=== PATIENT | female | born 1980 | race Caucasian/White ===

== ENCOUNTER 2017-09-21 12:50 | Outpatient (CLI) | payer MEDICAID ==
[2017-09-21 19:43] LABS: BASOPHILS # (AUTO) 0.1 10^3/uL (0.0-0.1); BASOPHILS % (AUTO) 0.9 %; EOSINOPHILS # (AUTO) 0.1 10^3/uL (0.0-0.7); EOSINOPHILS % (AUTO) 1.5 %; HCT - HEMATOCRIT 40.7 % (37.0-47.0); HGB - HEMOGLOBIN 13.6 g/dL (12.0-16.0); LYMPHOCYTES # (AUTO) 2.1 10^3/uL (1.5-3.5); LYMPHOCYTES % (AUTO) 33.1 %; MEAN CORPUSCULAR HEMOGLOBIN 31.7 pg (27.0-31.0); MEAN CORPUSCULAR HGB CONC 33.3 g/dL (32.0-36.0); MEAN CORPUSCULAR VOLUME 95.2 fL (81.0-99.0); MEAN PLATELET VOLUME 9.6 fL (7.9-10.8); MONOCYTES # (AUTO) 0.4 10^3/uL (0.0-1.0); MONOCYTES % (AUTO) 6.8 %; NEUTROPHILS # (AUTO) 3.7 10^3/uL (1.5-6.6); NEUTROPHILS % (AUTO) 57.7 %; RED BLOOD COUNT 4.28 10^6/uL (4.20-5.40); RED CELL DISTRIBUTION WIDTH 13.9 % (12.0-15.0); UNCORRECTED WHITE BLOOD COUNT 6.4 x10^3/uL; WHITE BLOOD COUNT 6.4 x10^3/uL (4.8-10.8)
== END 2017-09-21 12:51 | disposition home or self-care (01) ==
LOC: LAB.F 12:50
PROVIDERS: ATTEND Nurse Practitioner Family
DX: R53.83 Other fatigue (principal)
CPT/HCPCS: 36415; 84443; 85025

== ENCOUNTER 2018-12-18 12:26 | Outpatient (CLI) | payer MEDICAID ==
--- NOTE | 2018-12-18 18:39 | MRI Report ---
Reason: DERANG OF UNSP LAT MENS DUE TO OLD TEAR/INJ, RIGH Procedure Date: 12/18/2018 Accession Number: [id number] / [id number] Procedure: MRI - Knee RT W/O CPT Code: FULL RESULT: EXAM: RIGHT KNEE MRI WITHOUT CONTRAST EXAM DATE: 12/18/2018 12:40 PM. CLINICAL HISTORY: Knee pain after lifting injury. History of prior knee surgery. COMPARISON: KNEE 3 VIEW RT 11/08/2018 9:31 AM. TECHNIQUE: Multiplanar, multisequence T1-weighted and fluid-sensitive sequences of the knee without contrast. Other: None. FINDINGS: Ligaments: ACL reconstruction has been performed. The ACL graft is contiguous and without laxity and there are no signs of graft tear. The posterior cruciate ligament is intact. The medial and lateral collateral ligaments are intact. Patellofemoral compartment: Diffuse thinning of the retropatellar cartilage of the lower half of the patella, most evident centrally and laterally. There is also full-thickness chondromalacia of the superior aspect of the femoral trochlea, most evident centrally and laterally. Small patellofemoral osteophytes indicate mild osteoarthritis. Patellofemoral alignment is anatomic. Postsurgical changes in the patellar tendon consistent with graft harvesting for the ACL reconstruction. The patellar tendon is otherwise normal. The distal quadriceps tendon is normal. The medial and lateral patellofemoral retinacula are normal. Medial compartment: The medial meniscus is intact. Medial compartment cartilage is preserved. Tiny medial compartment osteophytes indicate osteoarthritis. Lateral compartment: The lateral meniscus is intact. There is partial thickness chondromalacia of the lateral femoral condyle and lateral tibial plateau posteriorly. Small to moderate sized lateral compartment osteophytes indicate osteoarthritis. Soft tissues: There is a small knee effusion with synovitis. No popliteal cyst. IMPRESSION: 1. Intact ACL reconstruction. 2. 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 3. Mild lateral compartment chondromalacia and osteoarthritis. No lateral meniscal tear. 4. Mild medial compartment osteoarthritis without chondromalacia. Intact medial meniscus. [facility] MUSCULOSKELETAL RADIOLOGY SECTION
== END 2018-12-18 12:27 | disposition home or self-care (01) ==
LOC: DI 12:26
PROVIDERS: ATTEND Orthopaedic Surgery
DX: M94.261 Chondromalacia, right knee (principal); M17.11 Unilateral primary osteoarthritis, right knee

== ENCOUNTER 2019-10-11 07:00 | Outpatient (CLI) | payer MEDICAID | END 2019-10-11 23:59 | disposition home or self-care (01) | LOC: LAB.R 07:00 | PROVIDERS: ATTEND Family Medicine | DX: R30.0 Dysuria (principal) | CPT/HCPCS: 87086 ==

== ENCOUNTER 2019-10-11 14:52 | Outpatient (CLI) | payer MEDICAID ==
[2019-10-11 17:14] LABS: BASOPHILS % (AUTO) 0.4 %; EOSINOPHILS # (AUTO) 0.1 10^3/uL (0.0-0.7); EOSINOPHILS % (AUTO) 1.2 %; HGB - HEMOGLOBIN 12.4 g/dL (12.0-16.0); LYMPHOCYTES # (AUTO) 2.2 10^3/uL (1.5-3.5); LYMPHOCYTES % (AUTO) 28.6 %; MEAN CORPUSCULAR HEMOGLOBIN 31.1 pg (27.0-31.0); MEAN CORPUSCULAR HGB CONC 32.5 g/dL (32.0-36.0); MEAN CORPUSCULAR VOLUME 95.7 fL (81.0-99.0); MEAN PLATELET VOLUME 11.4 fL (7.9-10.8); MONOCYTES # (AUTO) 0.5 10^3/uL (0.0-1.0); MONOCYTES % (AUTO) 6.4 %; NEUTROPHILS # (AUTO) 4.9 10^3/uL (1.5-6.6); NEUTROPHILS % (AUTO) 63.1 %; PLT - PLATELET COUNT 264 10^3/uL (130-450); RED BLOOD COUNT 3.99 10^6/uL (4.20-5.40); RED CELL DISTRIBUTION WIDTH 12.4 % (12.0-15.0); WHITE BLOOD COUNT 7.7 x10^3/uL (4.8-10.8)
== END 2019-10-11 14:53 | disposition home or self-care (01) ==
LOC: LAB.S 14:52
PROVIDERS: ATTEND Family Medicine
DX: R10.2 Pelvic and perineal pain (principal); R30.0 Dysuria
CPT/HCPCS: 36415; 81001; 85025; 85651; 86140; 87086

== ENCOUNTER 2019-11-15 10:37 | Outpatient (CLI) | payer MEDICAID ==
--- NOTE | 2019-11-16 04:34 | Ultrasound Report ---
Reason: PELVIC PAIN Procedure Date: 11/15/2019 Accession Number: [id number] / [id number] Procedure: US - Pelvic w/Transvaginal CPT Code: Final Report FULL RESULT: EXAM: PELVIC ULTRASOUND EXAM DATE: 11/15/2019 10:49 AM. CLINICAL HISTORY: PELVIC PAIN. COMPARISON: None. TECHNIQUE: Realtime transabdominal pelvic scan performed to identify the uterus and adnexa and as an overview of other pelvic structures, followed by transvaginal scan to provide greater detail of the uterus and adnexa, with static image documentation. FINDINGS: Uterus: 8.6 x 4.5 x 5.5 cm, volume 111 cc. Anteverted position. Normal overall size and echotexture. Masses: Subcentimeter posterior intramural uterine fibroid measuring 6 x 5 x 7 mm. Endometrium: 10 mm. Normal. Cervix: Nabothian cysts. Echogenic focus in posterior cervix measuring 4 x 3 x 6 mm. Right Ovary: 1.7 x 2.3 x 3.3 cm, volume 7 cc. Hemorrhagic involuting cyst/follicle measuring 1.3 x 1.2 x 1.4 cm. Normal blood flow. Left Ovary: 2.3 x 2.2 x 2.5 cm, volume 6.4 cc. Normal echotexture and blood flow. Free Fluid: None. Other: None. IMPRESSION: 1. No evidence of ovarian torsion. 2. Involuting hemorrhagic cyst/follicle in right ovary measuring 1.4 cm. 3. Echogenic 6 mm focus in cervix, nonspecific. This could represent calcification although other etiologies are not excluded. Consider follow-up pelvic ultrasound in 6-10 weeks to reassess. 4. Subcentimeter uterine fibroid. [facility]
== END 2019-11-15 10:38 | disposition home or self-care (01) ==
LOC: DI 10:37
PROVIDERS: ATTEND Family Medicine
DX: N83.201 Unspecified ovarian cyst, right side (principal); N88.9 Noninflammatory disorder of cervix uteri, unspecified; D25.1 Intramural leiomyoma of uterus
CPT/HCPCS: 76830; 76856

== ENCOUNTER 2019-12-27 11:12 | Outpatient (CLI) | payer MEDICAID ==
--- NOTE | 2019-12-29 02:53 | Ultrasound Report ---
Reason: ABNORMAL CERVIX FINDING Procedure Date: 12/27/2019 Accession Number: [id number] / [id number] Procedure: US - Pelvic w/Transvaginal CPT Code: Final Report FULL RESULT: EXAM: PELVIC ULTRASOUND EXAM DATE: 12/27/2019 12:25 PM. CLINICAL HISTORY: Abnormal cervix finding. COMPARISON: PELVIC W/TRANSVAGINAL 11/15/2019 10:49 AM. TECHNIQUE: Realtime transabdominal pelvic scan performed to identify the uterus and adnexa and as an overview of other pelvic structures, followed by transvaginal scan to provide greater detail of the uterus and adnexa, with static image documentation. FINDINGS: LMP: 12/08/2019 Uterus: Uterus is normal in position and normal in configuration. Uterus measures 8.5 x 4.3 x 4.9 cm, 95 mL. There are 2 tiny posterior uterine leiomyoma measuring up to 9 mm. Endometrium: Endometrium measures 11.1 mm. No suspicious thickening or vascularity. Cervix: Small lobulated echogenic focus within the cervix is again noted, measuring 6.5 x 3.9 x 6.4 mm. Multiple nabothian cysts. Right Ovary: Normal in appearance measuring 3.1 x 2.4 x 1.8 cm, 7.4 mL. Normal blood flow. Left Ovary: Normal in appearance measuring 2.2 x 1.9 x 1.7 cm, 5.2 mL. Normal blood flow. Fluid: No signficant free fluid. Other: No other significant findings. IMPRESSION: Stable small lobular echogenic focus within the cervix measuring 6.5 x 3.9 x 6.4 mm. This probably represents a tiny dystrophic cervical calcification. However, correlation with recent Pap smear findings recommended.
== END 2019-12-27 11:13 | disposition home or self-care (01) ==
LOC: DI 11:12
PROVIDERS: ATTEND Nurse Practitioner Obstetrics & Gynecology
DX: N88.8 Other specified noninflammatory disorders of cervix uteri (principal)
CPT/HCPCS: 76830; 76856

== ENCOUNTER 2020-02-24 11:36 | Emergency (ER) | payer MEDICAID ==
--- NOTE | 2020-02-24 13:35 | ED Physician Documentation ---
History of Present Illness - Stated complaint Stated Complaint: RECTAL PX - Chief complaint Chief Complaint: General - History obtained from History obtained from: Patient (This is a previously healthy 40-year-old woman who for the last 3 weeks has had rectal pain, increasingly severe over the last 3 or 4 days. She does note a lump there. She feels like she has had hemorrhoids before but no formal diagnosis. She has been using Preparation H without relief. Of note she chronically has a feeling of the need to have a large bowel movement and disimpact herself but when she actually does the stool is soft. Chronic mild hematochezia without work-up.) Review of Systems Constitutional: denies: Fever, Chills, Weight Loss, Sweats GI: denies: Abdominal Pain, Nausea, Vomiting, Hematemesis : denies: Dysuria, Frequency PD PAST MEDICAL HISTORY - Past Medical History Cardiovascular: None Respiratory: None GI: None : None HEENT: None Psych: None Musculoskeletal: Other Derm: None - Past Surgical History Ortho: Arthroscopic surgery, Other HEENT: Tonsil/Adenoidectomy - Present Medications Home Medications: Ambulatory Orders Medication Instructions Recorded Confirmed Lidocaine [Anecream] 5 ml TP Q4H PRN #3 cream..g. 02/24/20 - Allergies Allergies/Adverse Reactions: Allergies Allergy/AdvReac Type Severity Reaction Status Date / Time Tetracyclines Allergy Severe Hives/SOB Verified 02/24/20 11:46 PD ED PE NORMAL - Vitals Vital signs reviewed: Yes - General General: Alert and oriented X 3, No acute distress - Abdomen Abdomen: Normal bowel sounds, Soft, Non tender - Female Female : Other (Rectal exam done with nurse Salma at the bedside and chaperoning. She has a nonthrombosed hemorrhoid at 12:00 which is tender. No other perirectal masses or obvious fissure.) - Neuro Neuro: Alert and oriented X 3, Normal speech Results - Vitals Vitals: Vital Signs - 24 hr 02/24/20 11:46 Temperature 36.6 C Heart Rate 56 L Respiratory 18 Rate Blood Pressure 108/72 O2 Saturation 100 Oxygen O2 Source Room air Departure - Departure Disposition: 01 Home, Self Care Clinical Impression: Hemorrhoid Qualifiers: Hemorrhoid type: unspecified Qualified Code(s): K64.9 - Unspecified hemorrhoids Condition: Good Record reviewed to determine appropriate education?: Yes Instructions: ED Hemorrhoids Prescriptions: Lidocaine [Anecream] 5 ml TP Q4H PRN #3 cream..g. PRN Reason: Rectal Pain Comments: As discussed you have some symptoms that are concerning in the long-term and I would suggest you follow-up with your primary care physician for consideration for referral for colonoscopy. Return for new or worsening symptoms.
[2020-02-24 13:50] VITALS: BP 106/86
== END 2020-02-24 13:48 | disposition home or self-care (01) ==
LOC: ED 11:36
DX: K64.9 Unspecified hemorrhoids (principal)
CPT/HCPCS: 99282; 99283

== ENCOUNTER 2021-02-10 13:58 | Outpatient (CLI) | payer OTHER, MEDICAID ==
--- NOTE | 2021-02-10 17:00 | XRAY Report ---
PROCEDURE: Lumbar Spine Complete INDICATIONS: DDD LUMBAR SPINE TECHNIQUE: 5 views of the lumbar spine were acquired. COMPARISON: None. FINDINGS: Bones: 5 vbe-lsy-mimvjyn vertebrae are present. There is mild to moderate levoscoliosis of lumbar s pine centered at L3 level. Degenerative endplate changes are noted at L4-5 and L5-S1 levels. No vert ebral body compression fractures. No suspicious bony lesions. Oblique views shows no gross pars defects. No significant bony foraminal stenosis. Soft tissues: Overlying bowel gas pattern is normal. No suspicious soft tissue calcifications. IMPRESSION: Degenerative disc disease in lower lumbar spine most prominent at L5-S1 level. No acute compression fracture. Mild to moderate scoliosis of lumbar spine centered at L3 level. No gross pars defect. Reviewed by: Aric Patel MD on 02/10/2021 4:59 PM PDT Approved by: Aric Patel MD on 02/10/2021 4:59 PM PDT Station ID: [id number]
== END 2021-02-10 13:59 | disposition home or self-care (01) ==
LOC: DI.S 13:58
PROVIDERS: ATTEND Physician Assistant
DX: M51.36 Other intervertebral disc degeneration, lumbar region (principal); M51.37 Other intervertebral disc degeneration, lumbosacral region; M41.9 Scoliosis, unspecified

== ENCOUNTER 2023-04-04 06:50 | Emergency (ER) | payer OTHER, MEDICAID ==
[2023-04-04 07:09] VITALS: BP 115/80
--- NOTE | 2023-04-04 07:45 | ED Physician Documentation ---
PD HPI HEENT - Stated complaint Stated Complaint: L JAW/BODY PX/SOA - Chief complaint Chief Complaint: General - History obtained from History obtained from: Patient - History of Present Illness Timing - onset: How many days ago (4) Timing - duration: Days (4) Timing - details: Gradual onset, Still present Location: Tooth Improves: Medication Worsens: Everything Associated symptoms: Other (body aches severe pain in jaw). No: Fever, Congestion, Rhinorrhea, Trismus, Unable to swallow, Swollen nodes, Facial swelling, Headache, Cough Similar symptoms before: Diagnosis (dental infection) Recently seen: Not recently seen - Additional information Additional information: 43-year-old Paula Baez has developed pain in her left lower jaw over the past 3 days that has been unrelenting. She is not getting a break from the pain she has not been able to sleep and she is having generalized body aches as well. She has had this tooth worked on previously it has a crown that has come off. She has had pain intermittently to this area and now it is persistent and severe. Review of Systems Constitutional: reports: Myalgias, Fatigue. denies: Fever Eyes: denies: Decreased vision Ears: denies: Ear pain Nose: denies: Rhinorrhea / runny nose, Congestion Throat: reports: Dental pain / toothache Cardiac: denies: Chest pain / pressure, Palpitations Respiratory: denies: Dyspnea, Cough GI: reports: Nausea. 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 : Nocturia, Frequency HEENT: None Psych: None Musculoskeletal: Other Derm: None - Past Surgical History Past Surgical History: Yes Ortho: Arthroscopic surgery, Other HEENT: Tonsil/Adenoidectomy - Present Medications Home Medications: Ambulatory Orders Medication Instructions Recorded Confirmed Cholecalciferol (Vitamin D3) 125 mcg PO DAILY 06/29/20 04/04/23 [Vitamin D3] Amoxicillin 875 mg PO BID #20 tablet 04/04/23 HYDROcod/ACETAM 5/325 [Lakeland 5/325] 1 - 2 tablet PO Q6H PRN #14 tablet 04/04/23 - Allergies Allergies/Adverse Reactions: Allergies Allergy/AdvReac Type Severity Reaction Status Date / Time Tetracyclines Allergy Severe Hives/SOB Verified 04/04/23 06:58 - Social History Does the pt smoke?: No Smoking Status: Never smoker Does the pt drink ETOH?: No Does the pt have substance abuse?: No - Immunizations Immunizations are current?: Yes PD ED PE NORMAL - Vitals Vital signs reviewed: Yes (Tachycardic) - General General: Alert and oriented X 3, No acute distress, Well developed/nourished - HEENT HEENT: Atraumatic, PERRL, EOMI, Other (There is a left lower molar that has a smooth surface and no drainage. There is tenderness to the mesial aspect of the tooth in the mouth without mass palpable. There is no mass palpable to the gingiva on the buccal side.) - Neck Neck: Supple, no meningeal sign, No bony TTP - Respiratory Respiratory: No respiratory distress - Derm Derm: Normal color, Warm and dry, No rash - Extremities Extremities: No deformity, No edema - Neuro Neuro: Alert and oriented X 3, shop steward 2-12 intact, No motor deficit, No sensory deficit, Normal speech Eye Opening: Spontaneous Motor: Obeys Commands Verbal: Oriented GCS Score: 15 - Psych Psych: Normal mood, Normal affect Results - Vitals Vitals: Vital Signs - 24 hr 04/04/23 06:59 Temperature 37.7 C Heart Rate 105 H Respiratory 20 Rate Blood Pressure 115/80 O2 Saturation 100 Oxygen O2 Source Room air PD Medical Decision Making - ED course Complexity details: considered differential, d/w patient ED course: 43-year-old female with a dental abscess from what looks like a failed crown has generalized body aches as well. We will place patient on a course of amoxicillin and provide some temporary pain relief as well as referral to Dr. Barajas Departure - Departure Disposition: 01 Home, Self Care Clinical Impression: Dental abscess Condition: Stable Instructions: ED Abscess Dental Follow-Up: ASAD BARAJAS [Physician No Access] - Prescriptions: Amoxicillin 875 mg PO BID #20 tablet HYDROcod/ACETAM 5/325 [[place] 5/325] 1 - 2 tablet PO Q6H PRN #14 tablet PRN Reason: Pain Comments: Paula, it looks like you have a dental abscess in the lower molar on your left side. This will need to be addressed by the dentist and I have given you a number for a oral maxillofacial surgeon in [place] for follow-up. Treatment with antibiotic will help with the pain and reduce the effects of the infection. I have E scribed some amoxicillin to the [facility] in [place]. I have also E scribed some Lakeland for pain control. This is a narcotic pain medication and you cannot drive or operate machinery after you have used it, it will make you constipated and it is habit-forming, so we are only a able to provide a small amount of this pain medication.
[2023-04-04 08:13] LABS: B. PARAPERTUSSIS- RESP PCR PAN NOT DETECTED; B. PERTUSSIS- RESP PCR PANEL NOT DETECTED; C. PNEUMONIAE- RESP PCR PANEL NOT DETECTED; CORONAVIRUS 229E-RESP PCR NOT DETECTED; CORONAVIRUS HKU1-RESP PCR NOT DETECTED; CORONAVIRUS NL63-RESP PCR NOT DETECTED; CORONAVIRUS OC43-RESP PCR NOT DETECTED; HUMAN METAPNEUMOVIRUS NOT DETECTED; INFLUENZA A- RESP PCR PANEL NOT DETECTED; INFLUENZA B - RESP PCR PANEL NOT DETECTED; M. PNEUMONIAE- RESP PCR PANEL NOT DETECTED; PARAINFLUENZA VIRUS 1 NOT DETECTED; PARAINFLUENZA VIRUS 2 NOT DETECTED; PARAINFLUENZA VIRUS 3 NOT DETECTED; PARAINFLUENZA VIRUS 4 NOT DETECTED; RHINOVIRUS/ENTEROVIRUS NOT DETECTED; RSV- RESP PCR PANEL NOT DETECTED; SARS-CoV-2 -RESP PCR PANEL NOT DETECTED
== END 2023-04-04 08:10 | disposition home or self-care (01) ==
LOC: ED 06:50
DX: K04.7 Periapical abscess without sinus (principal)
CPT/HCPCS: 87633; 99283

== ENCOUNTER 2023-08-25 10:40 | Outpatient (CLI) | payer OTHER, MEDICAID ==
--- NOTE | 2023-08-28 12:24 | Mammography Report ---
BILATERAL DIGITAL DIAGNOSTIC MAMMOGRAM 3D/2D: 08/25/2023 CLINICAL: Baseline exam. Lump in right breast. No prior exams were available for comparison. Both breasts are heterogeneously dense, which may obscure small masses (category c / 51-75% glandular tissue). There is an irregular equal density focal asymmetry in the right breast at 11 o'clock middle depth. No other significant masses, calcifications, or other findings are seen in either breast. IMPRESSION: INCOMPLETE: NEEDS ADDITIONAL IMAGING EVALUATION The irregular equal density focal asymmetry in the right breast resembles fibroglandular tissue and i s indeterminate. An ultrasound is recommended for further evaluation and is scheduled to immediately follow this examination. There is no abnormality seen in the right breast to correspond with the area of clinical concern and palpable abnormality in the anterior depth in the upper outer quadrant, however, an ultrasound is rec ommended for further evaluation and is scheduled to immediately follow this examination. Based on the Tyrer Cuzick model (a risk assessment model) the patients lifetime risk is 15.0% and he r 10 year risk is 2.3%. According to the ACR, ACS, and NCCN guidelines, an annual breast MRI exam lubna ng with mammogram is recommended if the patients lifetime risk is 20% or greater. This exam was interpreted at Station ID: [id number]. NOTE: For mammograms, a report in lay terms will be sent to the patient. Approximately 15% of breast malignancies will not be visualized mammographically. In the management of a palpable breast mass, a negative mammogram must not discourage biopsy of a clinically suspicious lesion. Electronically Signed By: Ole North M.D. aty/:08/25/2023 11:21:16 ACR BI-RADS Category 0: Incomplete 3340F PARENCHYMAL PATTERN: (D) - The breast(s) demonstrate(s) heterogeneously dense fibroglandular paradriannay ma. BI-RADS CATEGORY: (0) - 0 Ultrasound [id number] Immediate follow-up LATERALITY: (R)
--- NOTE | 2023-08-28 12:24 | Ultrasound Report ---
LIMITED ULTRASOUND OF RIGHT BREAST: 08/25/2023 CLINICAL: Palpable right breast lump. No prior exams were available for comparison. Color flow ultrasound of the right breast 11-12 o'clock, and retroareolar regions was performed. Gra y scale images of the real-time examination were reviewed. No significant abnormalities were seen sonographically in the right breast. IMPRESSION: NEGATIVE There is no sonographic evidence of malignancy. There is no abnormality seen in the right breast to correspond with the area of clinical concern and palpable abnormality in the anterior depth in the upper outer quadrant, however, recommend clinical follow up for persistent or worsening symptoms, or development of any clinically suspicious findings. There is no abnormality seen in the right breast to correspond with the focal asymmetry seen in the u pper aspect middle depth which is consistent with normal dense fibroglandular tissue. A 1 year screening mammogram is recommended. Findings and recommendations were conveyed to the patient during today's evaluation. This exam was interpreted at Station ID: [id number]. Electronically Signed By: Ole North M.D. aty/:08/25/2023 12:26:45 Ultrasound BI-RADS: 1 Negative BI-RADS CATEGORY: (1) - 1 Mammogram [id number] 1 year screening LATERALITY: (B)
== END 2023-08-25 10:41 | disposition home or self-care (01) ==
LOC: DI 10:40
PROVIDERS: ATTEND Nurse Practitioner Acute Care
DX: N63.11 Unspecified lump in the right breast, upper outer quadrant (principal); R92.333 Mammographic heterogeneous density, bilateral breasts

== ENCOUNTER 2023-10-17 10:20 | Outpatient (CLI) | payer OTHER, MEDICAID ==
[2023-10-17 15:15] LABS: BASOPHILS # (AUTO) 0.1 10^3/uL (0.0-0.1); BASOPHILS % (AUTO) 1.1 %; EOSINOPHILS # (AUTO) 0.1 10^3/uL (0.0-0.7); EOSINOPHILS % (AUTO) 1.8 %; HCT - HEMATOCRIT 39.6 % (37.0-47.0); HGB - HEMOGLOBIN 12.8 g/dL (12.0-16.0); LYMPHOCYTES # (AUTO) 1.9 10^3/uL (1.5-3.5); MEAN CORPUSCULAR HEMOGLOBIN 31.1 pg (27.0-31.0); MEAN CORPUSCULAR HGB CONC 32.3 g/dL (32.0-36.0); MEAN CORPUSCULAR VOLUME 96.1 fL (81.0-99.0); MEAN PLATELET VOLUME 10.9 fL (7.9-10.8); MONOCYTES # (AUTO) 0.4 10^3/uL (0.0-1.0); MONOCYTES % (AUTO) 8.4 %; NEUTROPHILS # (AUTO) 2.1 10^3/uL (1.5-6.6); NEUTROPHILS % (AUTO) 47.5 %; PLT - PLATELET COUNT 264 10^3/uL (130-450); RED BLOOD COUNT 4.12 10^6/uL (4.20-5.40); RED CELL DISTRIBUTION WIDTH 12.8 % (12.0-15.0); WHITE BLOOD COUNT 4.5 x10^3/uL (4.8-10.8)
[2023-10-17 15:46] LABS: THYROID STIMULATING HORMONE 1.73 uIU/mL (0.34-5.60)
[2023-10-17 15:47] LABS: ALBUMIN 4.3 g/dL (3.2-5.5); ALKALINE PHOSPHATASE 42 IU/L (42-121); ALT ALANINE AMINOTRANSFERASE 9 IU/L (10-60); AST ASPARTATE AMINOTRANSFERASE 13 IU/L (10-42); BILIRUBIN,TOTAL 0.4 mg/dL (0.2-1.0); BUN - BLOOD UREA NITROGEN 14 mg/dL (6-20); CALCIUM 9.2 mg/dL (8.5-10.3); CARBON DIOXIDE - CO2 27 mmol/L (21-32); CHLORIDE 106 mmol/L (101-111); CHOLESTEROL 169 mg/dL; CREATININE 0.7 mg/dL (0.6-1.3); GFR - MDRD 92 (>89); GLUCOSE 86 mg/dL (74-104); HDL CHOLESTEROL 57 mg/dL; LDL CHOLESTEROL,CALCULATED 101 mg/dL; LDL/HDL RATIO 1.8 (<4.4); POTASSIUM 3.9 mmol/L (3.5-4.5); SODIUM 138 mmol/L (135-145); TOTAL PROTEIN 6.5 g/dL (6.4-8.9); TRIGLYCERIDES 53 mg/dL (48-352); VLDL CHOLESTEROL 11 mg/dL
== END 2023-10-17 10:21 | disposition home or self-care (01) ==
LOC: LAB.S 10:20
PROVIDERS: ATTEND Nurse Practitioner Acute Care
DX: Z13.228 Encounter for screening for other metabolic disorders (principal); Z13.220 Encounter for screening for lipoid disorders; Z13.0 Encounter for screening for diseases of the blood and blood-forming organs and certain disorders involving the immune mechanism
CPT/HCPCS: 36415; 80050; 80061; 83721

== ENCOUNTER 2023-10-20 08:00 | Outpatient (CLI) | payer OTHER, MEDICAID ==
--- NOTE | 2023-10-20 14:02 | XRAY Report ---
PROCEDURE: Hand 3+V RT INDICATIONS: RIGHT HAND CONTUSION TECHNIQUE: 3 views of the hand(s) acquired. COMPARISON: None. FINDINGS: Bones: No fractures or dislocations. No suspicious bony lesions. Soft tissues: No suspicious soft tissue calcifications or masses. IMPRESSION: No acute bony abnormality. If pain persists with conservative management, consider repeat radiographs in 10-14 days or cross-sectional imaging. Reviewed by: Donald Aragon MD on 10/20/2023 2:01 PM PST Approved by: Donald Aragon MD on 10/20/2023 2:01 PM PST Station ID: [id number]
== END 2023-10-20 23:59 | disposition home or self-care (01) ==
LOC: DI.S 08:00
PROVIDERS: ATTEND Emergency Medicine
DX: S60.221A Contusion of right hand, initial encounter (principal)

== ENCOUNTER 2023-11-06 13:09 | Outpatient (CLI) | payer OTHER, MEDICAID ==
--- NOTE | 2023-11-06 18:41 | Ultrasound Report ---
PROCEDURE: Pelvic w/Transvaginal INDICATIONS: FEMALE PELVIC PAIN TECHNIQUE: Real-time scanning was performed of the pelvic organs, with image documentation. Additional endovagi nal scanning was necessary due to incomplete visualization of the adnexal and endometrial structures by transabdominal scanning. COMPARISON: None. FINDINGS: Uterus: Uterus is anteverted and upper limits of normal in size at 9.6 x 4.6 x 5.4 cm. There is a mi d posterior subserosal focus of heterogeneous echogenicity measuring 1.8 x 1.7 x 1.37 m compared to 0 .8 x 0.6 x 0.7 cm. A left posterior subserosal focus is present measuring 1.6 x 1.5 x 1.6 cm compared to 0.8 x 0.6 x 0.9 cm. A newly identified focus in the right anterior subserosal region is present m easuring 0.9 x 0.8 x 0.6 cm. The endometrium measures 14.5 mm in combined thickness. Nabothian cysts are present. Ovaries: The right ovary measures 2.8 x 2.1 x 3.3 cm, with a calculated ovarian volume of 10.4 cc. The left ovary measures 1.8 x 1.4 x 3.0 cm, with a calculated ovarian volume of 3.8 cc. Prominent fol licle versus small cyst in the right ovary measuring 1.7 cm. Complex focus measuring 1.3 x 1.1 x 1.7 cm. Other: No pathologic free abdominal or pelvic fluid. IMPRESSION: Uterine fibroids overall increased compared to prior exam with new focus identified. Complex cyst versus potentially endometrioma within the right ovary. This was not well-seen on prior exam. Reviewed by: Rebeca Dixon MD on 11/06/2023 6:40 PM PST Approved by: Rebeca Dixon MD on 11/06/2023 6:40 PM PST Station ID: [id number]
== END 2023-11-06 13:10 | disposition home or self-care (01) ==
LOC: DI 13:09
PROVIDERS: ATTEND Nurse Practitioner
DX: D25.2 Subserosal leiomyoma of uterus (principal)

== ENCOUNTER 2024-05-06 16:30 | Outpatient (CLI) | payer OTHER, MEDICAID ==
--- NOTE | 2024-05-06 20:20 | Ultrasound Report ---
PROCEDURE: Pelvic w/Transvaginal INDICATIONS: OVARIAN CYST TECHNIQUE: Transabdominal/transvaginal ultrasound of the pelvis was obtained. Endovaginal scanning wa s necessary due to incomplete visualization of the adnexal and endometrial structures by transabdomin al scanning. COMPARISON: 11/06/2023 FINDINGS: Uterine size: Uterus measures 8.6 x 4.5 x 5.7 cm, and is anteverted. Myometrium: The myometrium is heterogenous. Midline posterior subserosal fibroid measures 1.7 x 1.0 x 1.8 cm, previously 1.7 x 1.7 x 1.3 cm. Left posterior subserosal fibroid 1.4 x 1.5 x 1.5 cm, previ ously 1.6 x 1.5 x 1.6 cm,. Right anterior subserosal fibroid 0.6 x 0.6 x 0.6 cm, previously 0.9 x 0.7 x 0.6 cm. Endometrium: The endometrium measures 5 mm in combined thickness. Right ovary: The right ovary measures 2.5 x 1.5 x 1.7 cm. Calculated ovarian volume 3.5 cc. Left ovary: The left ovary measures 2.2 x 1.6 x 2.2 cm. Calculated ovarian volume 4.6 cc. Other: No pathologic free abdominal or pelvic fluid. IMPRESSION: Stable fibroid uterus. No ovarian cysts Reviewed by: Glynn Garcia MD on 05/06/2024 7:19 PM LORRI Approved by: Glynn Garcia MD on 05/06/2024 7:19 PM [id number] Station ID: [id number]
== END 2024-05-06 16:31 | disposition home or self-care (01) ==
LOC: DI 16:30
PROVIDERS: ATTEND Nurse Practitioner
DX: N83.291 Other ovarian cyst, right side (principal); R10.2 Pelvic and perineal pain; D25.2 Subserosal leiomyoma of uterus